=== PATIENT | female | born 1995 | race Caucasian/White ===

== ENCOUNTER 2017-11-01 19:09 | Emergency (ER) | payer MEDICAID ==
[~2017-11-01] VITALS: Ht 154.9 cm; Wt 69.5 kg
[2017-11-01 19:51] LABS: BASOPHILS # (AUTO) 0.03 x10^3/uL (0-0.1); BASOPHILS % (AUTO) 0 % (0-1); EOSINOPHILS # (AUTO) 0.18 x10^3/uL (0-0.4); EOSINOPHILS % (AUTO) 2 % (1-7); LYMPHOCYTES # (AUTO) 1.81 x10^3/uL (1-3.4); LYMPHOCYTES % (AUTO) 20 % (22-44); MD NO; MEAN CORPUSCULAR HEMOGLOBIN 31.4 pg (27.0-34.8); MEAN CORPUSCULAR HGB CONC 34.2 g/dL (32.4-35.8); MEAN CORPUSCULAR VOLUME 91.8 fL (80-100); MEAN PLATELET VOLUME 9.3 fL (7.4-10.4); MONOCYTES # (AUTO) 0.59 x10^3/uL (0.2-0.8); MONOCYTES % (AUTO) 7 % (2-9); NEUTROPHILS # (AUTO) 6.46 x10^3/uL (1.8-6.8); NEUTROPHILS % (AUTO) 71 % (42-75); PLATELET COUNT 231 x10^3/uL (130-400); RED BLOOD COUNT 3.96 x10^6/uL (3.82-5.3); RED CELL DISTRIBUTION WIDTH 12.7 % (9.6-15.2)
[2017-11-01 20:05] LABS: ALBUMIN 2.7 g/dL (3.4-5.0); ANION GAP 6 mmol/L (5-15); CALCIUM 8.1 mg/dL (8.5-10.1); CHLORIDE 109 mmol/L (98-107); CREATININE 0.31 mg/dL (0.55-1.02)
[2017-11-01 20:19] LABS: CULTURE INDICATED? YES; MICROSCOPIC INDICATED
[2017-11-01 20:59] VITALS: BP 126/76
== END 2017-11-01 21:01 | disposition home or self-care (01) ==
LOC: ED 20:45
DX: O26.892 Other specified pregnancy related conditions, second trimester (principal); K04.7 Periapical abscess without sinus; Z3A.18 18 weeks gestation of pregnancy
CPT/HCPCS: 36415; 76805; 80048; 81001; 82040; 85025; 86901; 87086; 99285

== ENCOUNTER 2018-04-03 20:12 | Emergency (ER) | payer MEDICAID ==
[~2018-04-03] VITALS: Ht 154.9 cm; Wt 73.8 kg
[2018-04-03] MEDS ORDERED: EPINEPHRINE 1 MG/ML, 1ML SQ ONE (20:30)
[2018-04-03] MEDS ORDERED: FAMOTIDINE 20 MG TABLET PO ONE (20:30)
[2018-04-03] MEDS ORDERED: DIPHENHYDRAMINE 25 MG CAPSULE PO ONE (20:30)
[2018-04-03 22:23] VITALS: BP 100/65
== END 2018-04-03 22:25 | disposition home or self-care (01) ==
LOC: ED 20:53
DX: L50.9 Urticaria, unspecified (principal)
CPT/HCPCS: 99283